=== PATIENT | female | born 1995 | race Caucasian/White ===

== ENCOUNTER 2021-03-19 12:03 | Emergency (ER) | payer BC, SELFPAY ==
[2021-03-19 12:12] VITALS: BP 120/60; PULSE 80; RESP 16; TEMP 37.2; O2SAT 100
--- NOTE | 2021-03-19 13:23 | ED.ANIMALBIT ---
HPI - Animal Bite General Chief Complaint: Animal Bite Stated Complaint: Dog bite on face Time Seen by Provider: 03/19/21 13:23 Source: patient Mode of arrival: ambulatory Limitations: no limitations History of Present Illness HPI narrative: Marina Jones is a 25 yo female with PMH of depression who [facility] with dog bite that occurred last night that went through her lip, she is cleaned it well and this is here for assessment, and tetanus vaccine Related Data Home Medications Medication Instructions Recorded Confirmed citalopram [Celexa] 10 mg PO DAILY 03/19/21 03/19/21 citalopram [Celexa] 20 mg PO DAILY 03/19/21 03/19/21 Allergies Allergy/AdvReac Type Severity Reaction Status Date / Time No Known Allergies Allergy Verified 03/19/21 12:36 Review of Systems Review of Systems: Narrative: CONSTITUTIONAL: Denies fever, chills, sweats. EYES: Denies visual changes, redness, discharge. ENT: Denies rhinorrhea, congestion, sore throat, otalgia. CARDIOVASCULAR: Denies chest pain, palpitations, edema. RESPIRATORY: Denies dyspnea, wheezing, cough GASTROINTESTINAL: Denies abdominal pain, nausea, vomiting, diarrhea. GENITOURINARY: Denies dysuria, hematuria, abnormal discharge SKIN: Denies rash or itching. Dog bite to left upper lip last night NEUROLOGIC: Denies numbness, or focal weakness. PSYCHIATRIC: Denies anxiety or depression. PMFSH Past Medical History Medical History Depression Family History Family History Mother Diabetes mellitus Heart disease Father Tuberculosis Social History Social History (Updated 03/19/21 @ 13:32 by Olesya Roy CNP) Smoking status: Never smoker Alcohol intake: current Alcohol use details: rarely Gender identity (if verbalized by the patient): Female Comments At time of signature, I agree with nursing past medical, surgical, social and family history. There is no relevant family history pertinent to the presenting complaint. Exam Narrative: Exam Narrative: GENERAL: This is a well-nourished, well-developed patient, in mild distress. HEAD: normocephalic, atraumatic. EYES:Sclera clear/white. Vision is grossly intact. EARS: External ears normal, . Hearing grossly intact. MOUTH: Mid to left upper lip with 1 puncture david through skin above with no violation of the vermilion border scratches across the top of the lip, inside of mouth mildly swollen 1 puncture vick visible, no involvement of teeth NOSE: External nose normal without nasal discharge, nares without redness, no rhinorrhea. THROAT: Mucous membranes moist, NECK: Neck supple, non-tender CARDIOVASCULAR: Regular rate and rhythm without murmurs, gallops, or rubs. RESPIRATORY: Clear to auscultation. Breath sounds equal bilaterally. No wheezes, rales, or rhonchi. GASTROINTESTINAL: Abdomen soft, SKIN: warm, intact with no suspicious lesions or rash, good texture and turgor. NEURO: awake, alert, and oriented to person, place and time. There were no obvious focal neurologic abnormalities. Steady gait EXTREMITIES: Normal range of motion. BACK: Nontender without deformity Course Course Emergency Course: Patient bit by dog last night is here for assessment of her left side of her mouth Started on Augmentin, #3, discussed cleaning and drain maintaining good hygiene while mouth heals, no procedure needed Vital Signs Vital signs: Vital Signs Temperature 99.0 F 03/19/21 12:12 Pulse Rate 80 03/19/21 12:12 Respiratory Rate 16 03/19/21 12:12 Blood Pressure 120/60 03/19/21 12:12 Pulse Oximetry 100 03/19/21 12:12 Temperature 99.0 F 03/19/21 12:12 Pulse Rate 80 03/19/21 12:12 Respiratory Rate 16 03/19/21 12:12 Blood Pressure 120/60 03/19/21 12:12 Pulse Oximetry 100 03/19/21 12:12 MDM - Animal Bite Differential Diagnosis Differential diagnosis: Likely b
[2021-03-19] MEDS: TETANUS,DIPHTHERIA,AC PERTUSSIS ADULT (0.5 ML) BOOSTRIX IM (13:31)
== END 2021-03-19 13:44 | disposition home or self-care (01) ==
PROVIDERS: Emergency Provider Nurse Practitioner
DX: S01.551A Open bite of lip, initial encounter (principal); W54.0XXA Bitten by dog, initial encounter; Z23 Encounter for immunization; F32.9 Major depressive disorder, single episode, unspecified
CPT/HCPCS: 90471; 90715; 99213; G0463